=== PATIENT | male | born 1955 | race Caucasian/White ===

== ENCOUNTER 2017-06-02 15:39 | Emergency (ER) | payer OTHER, MEDICARE ==
[~2017-06-02] VITALS: Ht 175.3 cm; Wt 79.6 kg
[~2017-06-02 15:39] MED LIST: ASACOL HD800 MG PO; DOXYCYCLINE HYC50 MG PO; GABAPENTIN300 MG PO; IBUPROFEN800 MG PO; NEURONTIN300 MG PO; PERCOCET 10/1 TABLET PO; PERCOCET 5/31 TABLET PO; PREDNISONE20 MG PO; ULTRAM50 MG PO; XANAX0.25 MG PO
[2017-06-02 16:13] LABS: BASOPHIL (%) 0.4 % (0-1); EOSINOPHIL (%) 0.6 % (0-5); HEMATOCRIT 44.5 % (38.0-50.0); HEMOGLOBIN 15.6 G/DL (12.5-16.6); IMMATURE GRANULOCYTE (%) 0.3 % (0.0-0.7); LYMPHOCYTE (%) 32.5 % (15-42); LYMPHOCYTE COUNT 2.3 K/uL (1.0-2.8); MCHC 35.1 G/DL (30.0-36.0); MCV 88.3 FL (86-99); MONOCYTE (%) 7.7 % (3-12); MONOCYTE COUNT 0.5 K/uL (0-0.8); NEUTROPHIL (%) 58.5 % (45-76); NEUTROPHIL COUNT 4.1 K/uL (1.8-6.4); PLATELET COUNT 241 K/uL (156-360); RBC DIS.WIDTH-CV 12.2 % (11.8-14.6); RBC DIS.WIDTH-SD 39.4 % (39-53); RED BLOOD COUNT 5.04 M/uL (4.00-5.50)
[2017-06-02 16:27] LABS: ALBUMIN 4.4 g/dL (3.2-4.8); CHLORIDE 111 mEq/L (99-109); POTASSIUM 3.9 mEq/L (3.7-5.4); SODIUM 139 mEq/L (136-147)
[2017-06-02 16:30] LABS: GLUCOSE 80 mg/dL (70-99); TOTAL PROTEIN 7.4 g/dL (6.4-8.3)
[2017-06-02 16:32] LABS: TOTAL BILIRUBIN 0.7 mg/dL (0.0-1.0)
[2017-06-02 16:33] LABS: ALKALINE PHOSPHATASE 76 IU/L (3-129); GFR ESTIMATE (CALCULATED) > 59 mL/min/ (58.99-99999); TROP-I INTERPRETATION NEGATIVE; TROPONIN-I < 0.01 ng/mL (0.0-0.30)
[2017-06-02 16:34] LABS: UREA NITROGEN (BUN) 21 mg/dL (9-23)
[2017-06-02 16:35] LABS: AST (GOT) 17 IU/L (2-34)
[2017-06-02 16:40] LABS: ALT (GPT) 14 IU/L (3-49)
[2017-06-02 16:46] LABS: D-DIMER ELISA < 150.00 ng/mLDDU (<230)
[2017-06-02 19:52] LABS: TROP-I INTERPRETATION NEGATIVE; TROPONIN-I < 0.01 ng/mL (0.0-0.30)
[2017-06-02 20:40] VITALS: BP 143/97
== END 2017-06-02 20:53 | disposition home or self-care (01) ==
LOC: EME 15:39
PROVIDERS: Emergency Medicine
DX: R07.9 Chest pain, unspecified (principal); R06.00 Dyspnea, unspecified; K21.9 Gastro-esophageal reflux disease without esophagitis; R56.9 Unspecified convulsions; F41.9 Anxiety disorder, unspecified; Z87.891 Personal history of nicotine dependence; Z91.040 Latex allergy status
CPT/HCPCS: 71046; 71275; 76705; 80053; 84484; 85025; 85379; 93005; 99281; 99285; J7040